=== PATIENT | female | born 1970 | race Asian ===

== ENCOUNTER → 2016-07-12 | Outpatient (CLI) | payer OTHER ==
[~2016-07-12] MED LIST: BUPRTAB51 PO; ESCI10TA17 PO; ONDA4TAB7 SL
--- NOTE | 2016-07-12 15:44 | MAMMOGRAPHY REPORT ---
BILATERAL DIGITAL DIAGNOSTIC MAMMOGRAM TOMOSYNTHESIS WITH CAD AND TARGETED RIGHT ULTRASOUND: 7 CLINICAL HISTORY: 45-year-old woman presents for annual bilateral mammography, follow-up of left june ast calcifications and follow-up of a benign-appearing solid mass in the 10:00 right breast. She gutierrez s a history of benign left breast ultrasound guided core biopsy in the 2:00 axis. TECHNIQUE: Bilateral CC and MLO 2-D digital and tomosynthesis images, spot magnification left CC an d ML views were obtained. Current study was also evaluated with a Computer Aided Detection (CAD) sy stem. COMPARISON: Comparison is made to exams dated: 01/12/2016 ultrasound, 07/08/2015 ultrasound, mammogram, 07/08/2015 mammogram, 01/07/2015 ultrasound biopsy, and 01/07/2015 mammogram - [facility]. BREAST COMPOSITION: The tissue of both breasts is heterogeneously dense, which may obscure small ma sses. FINDINGS: There is a stable ribbon shaped metallic biopsy marker within a lobulated 13 mm mass in th e upper outer posterior left breast. The mass is stable in size comparing to prior mammograms and p athology results yielded a fibroadenoma. The spot magnification views of the left upper outer quadr ant demonstrate decreasing grouped microcalcifications which were present on prior spot magnificatio n views. The interval decrease confirms benignity and no further spot magnification views are neede d at this time. No obvious new mass, focal area of architectural distortion or new suspicious micro calcifications are seen bilaterally. Targeted ultrasound was again performed in the 10:00 axis of the right breast to reevaluate the hypo echoic solid benign-appearing mass. It is again seen in the 10:00 axis, 2 cm from the nipple, measu ring 6.0 x 3.8 x 5.3 mm. When comparing to the most distant right breast ultrasound dated 5, this has not significantly changed in size. At that time it measured 7.2 x 4.1 x 5.5 mm. 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 IMPRESSION: ACR-BI-RADS CATEGORY 3: PROBABLY BENIGN, TARGETED ULTRASOUND ACR-BI-RADS CATEGORY 3: [place] OBABLY BENIGN 1. Another follow-up targeted right breast ultrasound in the 10:00 axis is recommended ensure at le ast 2 years of stability of the benign-appearing 6 mm solid mass, as 2 years of stability are needed to confirm benignity. 2. Annual bilateral mammography will be due at that time. 3. The grouped microcalcifications in the left upper outer quadrant are decreased in number, confir jeanine benignity, most likely milk of calcium. These results and recommendations were discussed with the patient at the time of the exam. Approximately 10% of breast cancers are not detected with mammography. A negative mammographic repor t should not delay biopsy if a clinically suggestive mass is present. Gianna Villela M.D. ay/:07/12/2016 15:01:24 Baton Twirler: Andressa Wylie, [facility] letter sent: Follow Up Recommended 3 BI-RADS Code: ACR-BI-RADS Category 3: Probably Benign Ultrasound BI-RADS: ACR-BI-RADS Category 3: P robably Benign
== END | disposition home or self-care (01) ==
LOC: C.MAMM 10:28
PROVIDERS: ATTEND Obstetrics & Gynecology
DX: Z09 Encounter for follow-up examination after completed treatment for conditions other than malignant neoplasm (principal); R92.8 Other abnormal and inconclusive findings on diagnostic imaging of breast; N63 Unspecified lump in breast; R92.0 Mammographic microcalcification found on diagnostic imaging of breast

== ENCOUNTER → 2017-07-26 | Outpatient (CLI) | payer OTHER ==
--- NOTE | 2017-07-27 14:57 | MAMMOGRAPHY REPORT ---
BILATERAL DIGITAL SCREENING MAMMOGRAM TOMOSYNTHESIS WITH CAD: 07/26/2017 CLINICAL HISTORY: Routine screening. Patient has no complaints. TECHNIQUE: Breast tomosynthesis in addition to standard 2D mammography was performed. Current study was also evaluated with a Computer Aided Detection (CAD) system. COMPARISON: Comparison is made to exams dated: 07/12/2016 mammogram, 01/12/2016 mammogram, 07/08/2015 ma mmogram, 01/07/2015 mammogram, and 12/31/2014 mammogram - [facility]. BREAST COMPOSITION: The tissue of both breasts is extremely dense, which lowers the sensitivity of m ammography. FINDINGS: The glandular tissue pattern is similar to prior mammograms. There is a stable ribbon-shap ed biopsy marker clip in the upper outer quadrant of the left breast. No new suspicious mass, ronald ectural distortion or cluster of microcalcifications is seen. IMPRESSION: ACR BI-RADS CATEGORY 1: NEGATIVE 1. Stable bilateral mammograms, without mammographic evidence of malignancy. A 1 year screening mamm ogram is recommended. 2. The patient is also due for another follow-up targeted right breast ultrasound to ensure greater than or equal to 2 years of stability to confirm benignity, of a benign appearing solid mass. The patient will receive written notification of the results. Approximately 10% of breast cancers are not detected with mammography. A negative mammographic report should not delay biopsy if a clinically suggestive mass is present. Gianna Villela M.D. ay/:07/26/2017 14:16:07 Hoop Flaring Machine Operator: Marilu RINALDI(Jodi)(Mary)(PATTIE), [facility] letter sent: Normal 1/2 BI-RADS Code: ACR BI-RADS Category 1: Negative
== END | disposition home or self-care (01) ==
LOC: C.MAMM 13:33
PROVIDERS: ATTEND Obstetrics & Gynecology
DX: Z12.31 Encounter for screening mammogram for malignant neoplasm of breast (principal); N63.10 Unspecified lump in the right breast, unspecified quadrant

== ENCOUNTER → 2017-08-03 | Outpatient (CLI) | payer OTHER ==
--- NOTE | 2017-08-07 07:48 | MAMMOGRAPHY REPORT ---
ULTRASOUND OF RIGHT BREAST: 08/03/2017 CLINICAL HISTORY: The patient presents for interval follow-up of a right 10:00 breast mass seen only on ultrasound. Recent screening mammogram was negative. COMPARISON: Comparison is made to exams dated: 07/12/2016 mammogram, 07/12/2016 ultrasound, 01/12/2016 ul trasound, 01/12/2016 mammogram, 07/08/2015 ultrasound, and 01/07/2015 ultrasound biopsy - [facility]. TECHNIQUE: Real-time targeted ultrasound of the right breast was performed. FINDINGS: Real-time, high-resolution targeted ultrasound was performed of the area of the previously seen right breast mass at 10:00. In the right 10:00 breast, 2 cm from the nipple, again noted is a c ircumscribed hypoechoic oval mass which measures 6 x 3 x 5 mm. The mass is stable in size and appear ance dating back to the December 2014 exam and is considered benign given long-term stability and li ross represents a fibroadenoma. IMPRESSION: ACR BI-RADS CATEGORY 2: BENIGN Circumscribed 6 mm mass in the right 10:00 breast is stable dating back to the December 2014 exam an d is considered benign given long-term stability and likely represents a fibroadenoma. There is no s onographic evidence of malignancy. A 1 year screening mammogram is recommended. The patient was verbally notified of the results. Milla Elliott M.D. /:08/03/2017 14:30:09 Button Inspector: Milla Elliott MD, [facility] letter sent: Normal 1/2 BI-RADS Code: ACR BI-RADS Category 2: Benign
== END | disposition home or self-care (01) ==
LOC: C.MAMM 14:11
PROVIDERS: ATTEND Obstetrics & Gynecology
DX: N63.10 Unspecified lump in the right breast, unspecified quadrant (principal)

== ENCOUNTER → 2017-08-08 | Outpatient (CLI) | payer OTHER | END | disposition home or self-care (01) | LOC: C.PAPS 15:34 | PROVIDERS: ATTEND Obstetrics & Gynecology | DX: Z12.4 Encounter for screening for malignant neoplasm of cervix (principal) ==